=== PATIENT | male | born 1960 | race Caucasian/White ===

== ENCOUNTER 2016-10-21 13:43 | Emergency (ER) | payer BC ==
[~2016-10-21] VITALS: Ht 172.7 cm; Wt 79.0 kg
[2016-10-21 13:58] VITALS: BP 131/72
[2016-10-21 15:55] VITALS: BP 143/75
--- NOTE | 2016-10-21 15:57 | NUR ---
PATIENT IS A 56 YO MALE BIB SELF FOR RIGHT EYE REDNESS, AWAKE AND ALERT ABLE TO AMBULATE NO VISION PROBLEMS TO OVERFLOW 1 AWAITING MD FUNES.
--- NOTE | 2016-10-21 15:58 | NUR ---
Patient discharged with v/s stable. Written and verbal after care instructions given and explained. Patient verbalized understanding. Ambulatory with steady gait. All questions addressed prior to discharge. Advised to follow up with PMD.
== END 2016-10-21 15:58 | disposition home or self-care (01) ==
LOC: MED 13:43
DX: H11.32 Conjunctival hemorrhage, left eye (principal); R03.0 Elevated blood-pressure reading, without diagnosis of hypertension
CPT/HCPCS: 99281

== ENCOUNTER 2019-10-17 11:06 | Emergency (ER) | payer BC ==
[~2019-10-17] VITALS: Ht 167.6 cm; Wt 77.6 kg
[2019-10-17 11:10] VITALS: BP 126/74
--- NOTE | 2019-10-17 11:16 | NUR ---
59 y/o male from home c/o possible foreign body to lt eye s/p doing yard work yesterday. Pt c/o irritation to outer corner of lt eye. Denies pain. No discharge from eye. Denies change in vision/blurred vision. Sclera white/clear. Awake and alert. VSS medhx: denies
[2019-10-17] MEDS ORDERED: FLUORESCEIN OPTH STRIP 1 MG OP ONE (11:25)
[2019-10-17] MEDS ORDERED: TETRACAINE HCL/PF 0.5% OPTH 4 ML BTL OP ONE (11:25)
--- NOTE | 2019-10-17 11:27 | NUR ---
Tetracaine placed at bedside for use by Dr Morales
--- NOTE | 2019-10-17 11:30 | NUR ---
Dr Morales at bedside examining pt
--- NOTE | 2019-10-17 12:16 | NUR ---
Patient discharged with v/s stable. Written and verbal after care instructions given and explained. Patient alert, oriented and verbalized understanding of instructions. Ambulatory with steady gait. All questions addressed prior to discharge. ID band removed. Patient advised to follow up with PMD. Rx of ERYTHROMYCIN OPHTHALMIC given. Patient educated on indication of medication including possible reaction and side effects. Opportunity to ask questions provided and answered.
[2019-10-17 12:17] VITALS: BP 126/74
== END 2019-10-17 12:16 | disposition home or self-care (01) ==
LOC: MED 11:06
DX: T15.02XA Foreign body in cornea, left eye, initial encounter (principal)
CPT/HCPCS: 99283

== ENCOUNTER 2020-03-14 10:50 | Emergency (ER) | payer BC ==
[~2020-03-14] VITALS: Ht 170.2 cm; Wt 74.8 kg
[2020-03-14 10:51] VITALS: BP 123/64
--- NOTE | 2020-03-14 11:12 | NUR ---
C/O R KNEE PAIN 12/22 X YESTERDAY. DENIES TRAUMA. PMH: DENIES
[2020-03-14] MEDS ORDERED: KETOROLAC 60 MG/2 ML VIAL IM ONE (12:05)
--- NOTE | 2020-03-14 12:41 | NUR ---
Patient discharged with v/s stable. Written and verbal after care instructions given and explained. Patient alert, oriented and verbalized understanding of instructions. Ambulatory with steady gait. All questions addressed prior to discharge. ID band removed. Patient advised to follow up with PMD. Rx of MOTRIN &NORCO given. Patient educated on indication of medication including possible reaction and side effects. Opportunity to ask questions provided and answered.
[2020-03-14 12:44] VITALS: BP 123/64
== END 2020-03-14 12:41 | disposition home or self-care (01) ==
LOC: MED 10:50
DX: M25.561 Pain in right knee (principal); X58.XXXA Exposure to other specified factors, initial encounter; Y93.89 Activity, other specified; Y92.89 Other specified places as the place of occurrence of the external cause; Y99.8 Other external cause status
CPT/HCPCS: 73562; 96372; 99283; J1885